=== PATIENT | male | born 1975 | race Caucasian/White ===

== ENCOUNTER 2017-03-15 10:06 | Emergency (ER) | payer OTHER ==
[~2017-03-15] VITALS: Ht 180.3 cm; Wt 83.9 kg
[~2017-03-15 10:06] MED LIST: AGM875T PO; NF-TRA/ACE PO; SULF1TAB38 PO; TRAM-21 PO
--- OUTSIDE RECORDS SUMMARY | 2017-03-15 10:15 | XMS REPORT | Continuity of Care Document ---
Author Author [facility] Address Unknown Phone Unavailable Allergies Active Description Code Type Severity Reaction Onset Reported/Identified Relationship to Patient Clinical Status Yes codeine Drug Allergy N/A N/A 07/25/2009 Yes hydrocodone Drug Allergy N/A N/A 07/25/2009 Medications Problems Date Dx Coded Attending Type Code Diagnosis Diagnosed By 07/25/2009 386.2 VERTIGO OF CENTRAL ORIGIN 07/25/2009 784.0 HEADACHE 07/25/2009 HEATHER GALARZA APRN 386.2 VERTIGO OF CENTRAL ORIGIN 07/25/2009 HEATHER GALARZA APRN 784.0 HEADACHE 01/23/2012 726.32 LATERAL EPICONDYLITIS [place] 01/23/2012 HEATHER GALARZA APRN 726.32 LATERAL EPICONDYLITIS [place] 10/10/2012 305.1 NICOTINE DEPENDENCE 10/10/2012 401.1 ESSENTIAL HYPERTENSION BENIGN 10/10/2012 465.9 UPPER RESPIRATORY INFECTION 10/10/2012 HEATHER GALARZA APRN 305.1 NICOTINE DEPENDENCE 10/10/2012 HEATHER GALARZA APRN 401.1 ESSENTIAL HYPERTENSION BENIGN 10/10/2012 HEATHER GALARZA APRN 465.9 UPPER RESPIRATORY INFECTION 10/12/2012 HEATHER GALARZA APRN 382.9 OTITIS MEDIA 09/06/2013 HEATHER GALARZA APRN 346.90 HEADACHE, MIGRAINE Procedures Code Description [place] [id number] STREP A (IN-HOUSE) 10/10/2012 Results Encounters ACCT No. Visit Date/Time Discharge Status Pt. Type Provider Facility Loc./Unit Complaint [id number] 09/06/2013 17:08:00 09/06/2013 23: 59:59 CLS Outpatient HEATHER GALARZA APRN [id number] 10/10/2012 15:47:00 Document Registration
[2017-03-15] MEDS ORDERED: NITROGLYCERIN 0.4 MG SL TABS BTL 25'S SL ONE (10:24)
[2017-03-15] MEDS ORDERED: RX-NITROGLYCERIN 0.4 MG TAB BTL 25'S SL PRN (10:30)
[2017-03-15] MEDS ORDERED: ASPIRIN 81 MG CHEW (CHILDREN'S ASA) PO ONE (10:30)
--- NOTE | 2017-03-15 10:31 | ED Chest Pain ---
General Chief Complaint: Chest Pain Stated Complaint: CP,SHOULDER/BACK PAIN,SOB Nursing Triage Note: PT REPORTS INTERMITTENT CP. HE STATES HE HAD AND "EPISODE" WEDNESDAY THAT WAS ACCOMPANIED BY NAUSEA, DIZZINESS, DIAPHORESIS. Nursing Sepsis Screen: No Definite Risk Source: patient Exam Limitations: no limitations Allergies and Home Medications Allergies Coded Allergies: Codeine (Unverified Allergy, Mild, sick, 07/07/10) Hydrocodone (Unverified Allergy, Mild, sick, 07/07/10) Aspirin (Unverified Adverse Reaction, Mild, "told not to", 07/07/10) Home Medications Amoxicillin/Clavulanate K 1 Tab Tablet, 1 TAB PO BID for 7 Days, Ref 0 Prescribed by: MELECIO DHILLON on 12/20/10 3231 Past Utfpheb-Axnaar-Vitbrh Hx Patient Social History Alcohol Use: Rarely Uses Recreational Drug Use: No Smoking Status: Current Everyday Smoker Type Used: Cigarettes 2nd Hand Smoke Exposure: Yes Recent Foreign Travel: No Contact w/Someone Who Travel: No Recent Infectious Disease Expo: No Recent Hopitalizations: No Physical Abuse: No Sexual Abuse: No Seasonal Allergies Seasonal Allergies: No Surgeries History of Surgeries: Yes Surgeries: Orthopedic Respiratory History of Respiratory Disorde: No Cardiovascular History of Cardiac Disorders: Yes Cardiac Disorders: Hypertension Neurological History of Neurological Disord: Yes Neurological Disorders: Traumatic Brain Injury Genitourinary History of Genitourinary Disor: No Gastrointestinal History of Gastrointestinal Di: No Musculoskeletal History of Musculoskeletal Dis: No Endocrine History of Endocrine Disorders: No HEENT History of HEENT Disorders: No Cancer History of Cancer: No Psychosocial History of Psychiatric Problem: No Suicide Risk Score: 0 Integumentary History of Skin or Integumenta: No Physical Exam Vital Signs Vital Sign - Last 12Hours Capillary Refill : Less Than 3 Seconds Progress/Results/Core Measures Results/Orders Lab Results Laboratory Tests Test 03/15/17 10:20 Range/Units White Blood Count 8.9 4.3-11.0 10^3/uL Red Blood Count 4.97 4.35-5.85 10^6/uL Hemoglobin 15.8 13.3-17.7 G/DL Hematocrit 46 40-54 % Mean Corpuscular Volume 93 80-99 FL Mean Corpuscular Hemoglobin 32 25-34 PG Mean Corpuscular Hemoglobin Concent 34 32-36 G/DL Red Cell Distribution Width 12.8 10.0-14.5 % Platelet Count 147 130-400 10^3/uL Mean Platelet Volume 11.3 H 7.4-10.4 FL Neutrophils (%) (Auto) 64 42-75 % Lymphocytes (%) (Auto) 24 12-44 % Monocytes (%) (Auto) 7 0-12 % Eosinophils (%) (Auto) 4 0-10 % Basophils (%) (Auto) 0 0-10 % Neutrophils # (Auto) 5.7 1.8-7.8 X 10^3 Lymphocytes # (Auto) 2.1 1.0-4.0 X 10^3 Monocytes # (Auto) 0.7 0.0-1.0 X 10^3 Eosinophils # (Auto) 0.4 H 0.0-0.3 10^3/uL Basophils # (Auto) 0.0 0.0-0.1 10^3/uL Prothrombin Time 14.1 12.2-14.7 SEC INR Comment 1.1 0.8-1.4 Activated Partial Thromboplast Time 27 24-35 SEC D-Dimer < 0.27 0.00-0.49 UG/ML Sodium Level 137 135-145 MMOL/L Potassium Level 3.9 3.6-5.0 MMOL/L Chloride Level 103 98-107 MMOL/L Carbon Dioxide Level 28 21-32 MMOL/L Anion Gap 6 5-14 MMOL/L Blood Urea Nitrogen 13 7-18 MG/DL Creatinine 1.15 0.60-1.30 MG/DL Estimat Glomerular Filtration Rate > 60 BUN/Creatinine Ratio 11 Glucose Level 105 70-105 MG/DL Calcium Level 9.6 8.5-10.1 MG/DL Magnesium Level 2.1 1.8-2.4 MG/DL Total Bilirubin 0.5 0.1-1.0 MG/DL Aspartate Amino Transf (AST/SGOT) 28 5-34 U/L Alanine Aminotransferase (ALT/SGPT) 32 0-55 U/L Alkaline Phosphatase 58 40-136 U/L Myoglobin 92.7 H 10.0-92.0 NG/ML Troponin I < 0.30 <0.30 NG/ML Total Protein 7.5 6.4-8.2 GM/DL Albumin 4.4 3.2-4.5 GM/DL My Orders Orders - GURPREET MÁRQUEZ MD Cbc With Automated Diff (03/15/17 10:28) Magnesium (03/15/17 10:28) Chest 1 View, Ap/Pa Only (03/15/17 10:28) Ekg Tracing (03/15/17 10:28) Cardiac Profile 1 (03/15/17 10:28) Comprehensive Metabolic Panel (03/15/17 10:28) Myoglobin Serum (03/15/17 10:28) Protime With Inr (03/15/17 10:28) Partial Thromboplastin Time (03/15/17 10:28) O2 (03/15/17 10:28) Monitor-Rhythm Ecg Trace Only (03/15/17 10:28) Lipid Panel (03/16/17 06:00) Aspirin Chewable Tablet (Baby Aspirin Ch (03/15/17 10:30) Rx-Nitroglycerin Sl Tabs (Rx-Nitrostat S (03/15/17 10:30) Saline Lock/Iv-Start (03/15/17 10:28) Nitroglycerin 0.4 Mg Btl 25's (Nitrostat (03/15/17 10:24) Fibrin Degradation Products (03/15/17 11:45) Medications Given in ED Current Medications Medications Dose Ordered Sig/Dragan Route Start Time Stop Time Status Last Admin Dose Admin Aspirin 324 mg ONCE ONCE PO 03/15/17 10:30 03/15/17 10:31 DC 03/15/17 10:30 324 MG Nitroglycerin 0.4 mg STK-MED ONCE SL 03/15/17 10:24 03/15/17 10:33 DC 03/15/17 10:30 0.4 MG Vital Signs/I&O Vital Sign - Last 12Hours 03/15/17 03/15/17 10:15 10:15 Temp 96.9 Pulse 74 Resp 12 B/P (MAP) 172/100 Pulse Ox 96 O2 Delivery Room Air Room Air Blood Pressure Mean: 124 Progress Note #1: Time: 11:59 Progress Note Nitroglycerin had no effect on patient's pain. Workup was unremarkable. Case was reviewed with Dr. Pozo. Based on the patient's smoking history and family history of early cardiovascular events, further workup is felt prudent. Dr. Pozo requests a d-dimer be performed before completing the ER workup. Dr. Pozo's PA has been to the emergency room to evaluate the patient. Progress Note #2: Time: 12:44 Progress Note D-dimer was negative. Patient was seen in the emergency room by Dr. Pozo. He was taken directly to exercise stress test for further evaluation. ECG Initial ECG Impression Date: Mar 15, 2017 Initial ECG Impression Time: 10:11 Initial ECG Rate: 58 Initial ECG Rhythm: Normal Sinus Initial ECG Intervals: Normal Initial ECG Impression: Normal Comment Normal sinus rhythm with no ST elevation or depression. No abnormal intervals or axis deviation. Diagnostic Imaging Diagonstic Imaging: Xray Plain Films/CT/US/NM/MRI: chest Comments Chest x-ray viewed by me and report reviewed. See report below: NAME: CATHY CARDOZA [facility] REC#: [id number] PT STATUS: REG ER : 1975 PHYSICIAN: GURPREET MÁRQUEZ MD ADMIT DATE: 03/15/17/ER Signed Date of Exam: 03/15/17 CHEST 1 VIEW, AP/PA ONLY EXAMINATION: Portable upright radiograph of the chest. INDICATION: Dizziness. Chest pain. FINDINGS: There is suggestion of a prominent pericardial fat-pad in the medial aspect of the right lung base. The lungs otherwise are clear. The heart size is at the upper limits of normal. No effusion or pneumothorax. IMPRESSION: The mediastinum and eloina appear unremarkable. No acute process. Dictated by: Dictated on workstation # [id number] Dict: 03/15/17 1045 Trans: 03/15/17 1113 Interpreted by: ULI ALICEA MD Electronically signed by: ULI ALICEA MD 03/15/17 1113 Departure Impression Impression: Primary Impression: Chest pain Qualified Codes: R07.9 - Chest pain, unspecified Additional Impression: Essential hypertension Disposition: 01 HOME, SELF-CARE Condition: Improved Departure-Patient Inst. Decision time for Depature: 13:10 Referrals: CHANDANA VASQUEZ MD (PCP/Family) Primary Care Physician Patient Instructions: Chest Pain (DC) Add. Discharge Instructions: Follow-up with Dr. Vasquez as soon as possible. Take aspirin EC 81 mg daily for general cardiac prevention. Work toward quitting smoking. Seek assistance from Dr. Vasquez if needed. Return to the emergency room if symptoms worsen again. Eat a low salt diet and begin exercising to help control your blood pressure. All discharge instructions reviewed with patient and/or family. Voiced understanding. GURPREET MÁRQUEZ MD Mar 15, 2017 10:31
[2017-03-15 10:34] LABS: BASOPHILS % (AUTO) 0 % (0-10); EOSINOPHILS # (AUTO) 0.4 10^3/uL (0.0-0.3); EOSINOPHILS % (AUTO) 4 % (0-10); LYMPHOCYTES # (AUTO) 2.1 X 10^3 (1.0-4.0); LYMPHOCYTES % (AUTO) 24 % (12-44); MEAN CORPUSCULAR HEMOGLOBIN 32 PG (25-34); MEAN CORPUSCULAR HGB CONC 34 G/DL (32-36); MEAN CORPUSCULAR VOLUME 93 FL (80-99); MEAN PLATELET VOLUME 11.3 FL (7.4-10.4); MONOCYTES # (AUTO) 0.7 X 10^3 (0.0-1.0); MONOCYTES % (AUTO) 7 % (0-12); NEUTROPHILS # (AUTO) 5.7 X 10^3 (1.8-7.8); NEUTROPHILS % (AUTO) 64 % (42-75); PLATELET COUNT 147 10^3/uL (130-400); RED BLOOD COUNT 4.97 10^6/uL (4.35-5.85); RED CELL DISTRIBUTION WIDTH 12.8 % (10.0-14.5); WHITE BLOOD COUNT 8.9 10^3/uL (4.3-11.0)
[2017-03-15 10:38] LABS: INR 1.1 (0.8-1.4); PROTHROMBIN TIME PATIENT 14.1 SEC (12.2-14.7)
[2017-03-15 10:45] LABS: ALANINE AMINOTRANSFERASE 32 U/L (0-55); ALBUMIN 4.4 GM/DL (3.2-4.5); ANION GAP 6 MMOL/L (5-14); ASPARTATE AMINO TRANSFERASE 28 U/L (5-34); BILIRUBIN,TOTAL 0.5 MG/DL (0.1-1.0); BLOOD UREA NITROGEN 13 MG/DL (7-18); BUN/CREATININE RATIO 11; CALCIUM 9.6 MG/DL (8.5-10.1); CARBON DIOXIDE 28 MMOL/L (21-32); CHLORIDE 103 MMOL/L (98-107); CREATININE SERUM 1.15 MG/DL (0.60-1.30); GFR ESTIMATED > 60; GLUCOSE 105 MG/DL (70-105); MAGNESIUM 2.1 MG/DL (1.8-2.4); POTASSIUM 3.9 MMOL/L (3.6-5.0); SODIUM 137 MMOL/L (135-145); TOTAL PROTEIN 7.5 GM/DL (6.4-8.2)
[2017-03-15 10:52] LABS: MYOGLOBIN SERUM 92.7 NG/ML (10.0-92.0)
--- NOTE | 2017-03-15 10:56 | Diagnostic Imaging Report ---
EXAMINATION: Portable upright radiograph of the chest. INDICATION: Dizziness. Chest pain. FINDINGS: There is suggestion of a prominent pericardial fat-pad in the medial aspect of the right lung base. The lungs otherwise are clear. The heart size is at the upper limits of normal. No effusion or pneumothorax. IMPRESSION: The mediastinum and eloina appear unremarkable. No acute process. Dictated by: Dictated on workstation # [id number]
--- NOTE | 2017-03-15 12:10 | Consultation-Cardiology ---
HPI-Cardiology Cardiology Consultation Date of Consultation 03/15/17 Date of Admission Time Seen by Provider: 12:09 Indication: Chest pain HPI Patient is a 41 y/o male with history of HTN, tobaccoism. Reports he was fishing on Wednesday when he had an episode of chest pain with associated nausea , dyspnea, and diaphoresis. Episode lasted approx 15 minutes, then resolved on its own. Denies any active CP at this time. Reports intermitted episodes of CP over the past several months, though previous episodes only lasted seconds. Reports family history coronary artery disease. Patient is a 41 years old gentleman with history of hypertension and tobaccoism , had an episode of chest pain with shortness of breath and nausea lasted for 15 minutes and resolve spontaneously. The next day felt slightly tired. This morning came to the emergency room for evaluation out of concern about that episode. On my evaluation was feeling better. We discussed the management plan I recommended evaluating a stress test area Home Medications & Allergies Allergies: Coded Allergies: Codeine (Unverified Allergy, Mild, sick, 07/07/10) Hydrocodone (Unverified Allergy, Mild, sick, 07/07/10) Aspirin (Unverified Adverse Reaction, Mild, "told not to", 07/07/10) Home Medication List Reviewed: Yes DWM-Jlcbkf-Hseaqo Hx Patient Social History Alcohol Use: Rarely Uses Recreational Drug Use: No Smoking Status: Current Everyday Smoker Type Used: Cigarettes 2nd Hand Smoke Exposure: Yes Recent Foreign Travel: No Recent Infectious Disease Expo: No Recent Hopitalizations: No Past Medical History HTN, Tobaccoism Constitutional: No chills, No diaphoresis, No dizziness, No fever EENTM: No blurred vision, No double vision Respiratory: No cough, No short of breath Cardiovascular: chest pain, No palpitations, No syncope Gastrointestinal: No abdominal pain, No constipation Genitourinary: No frequency, No hematuria Musculoskeletal: No back pain Skin: No lesions, No rash Psychiatric/Neurological: Denies Anxiety Reviewed Test Results Reviewed Test Results Lab Laboratory Tests 03/15/17 10:20: White Blood Count 8.9, Red Blood Count 4.97, Hemoglobin 15.8, Hematocrit 46, Mean Corpuscular Volume 93, Mean Corpuscular Hemoglobin 32, Mean Corpuscular Hemoglobin Concent 34, Red Cell Distribution Width 12.8, Platelet Count 147, Mean Platelet Volume 11.3H, Neutrophils (%) (Auto) 64, Lymphocytes (%) (Auto) 24 , Monocytes (%) (Auto) 7, Eosinophils (%) (Auto) 4, Basophils (%) (Auto) 0, Neutrophils # (Auto) 5.7, Lymphocytes # (Auto) 2.1, Monocytes # (Auto) 0.7, Eosinophils # (Auto) 0.4H, Basophils # (Auto) 0.0, Prothrombin Time 14.1, INR Comment 1.1, Activated Partial Thromboplast Time 27, D-Dimer < 0.27, Sodium Level 137, Potassium Level 3.9, Chloride Level 103, Carbon Dioxide Level 28, Anion Gap 6, Blood Urea Nitrogen 13, Creatinine 1.15, Estimat Glomerular Filtration Rate > 60, BUN/Creatinine Ratio 11, Glucose Level 105, Calcium Level 9.6, Magnesium Level 2.1, Total Bilirubin 0.5, Aspartate Amino Transf (AST/SGOT ) 28, Alanine Aminotransferase (ALT/SGPT) 32, Alkaline Phosphatase 58, Myoglobin 92.7H, Troponin I < 0.30, Total Protein 7.5, Albumin 4.4 ECG Impression ECG Initial ECG Rhythm: Normal Sinus Physical Exam Vital Signs Vital Sign - Last 12Hours Capillary Refill : Less Than 3 Seconds General Appearance: No Apparent Distress, WD/WN HEENT: PERRL/EOMI, TMs Normal Neck: Non Tender, Supple Respiratory: Lungs Clear, No Respiratory Distress Cardiovascular: Regular Rate, Rhythm, No Edema, No Gallop Gastrointestinal: Non Tender, Soft Rectal: Deferred Back: No CVA Tenderness Extremity: Non Tender, No Calf Tenderness, No Pedal Edema Neurologic/Psychiatric: Alert, Oriented x3, 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 No acute EKG changes, cardiac enzymes negative. Further evaluation with EKG stress test (2) Dyspnea Qualifiers: Qualified Codes: R06.02 - Shortness of breath Status: Acute Permanent Comment: continue to monitor. Last Edited By: Leanne Hairston on Mar 15, 2017 12:49 (3) Hypertension Qualifiers: Qualified Codes: I10 - Essential (primary) hypertension Status: Chronic Permanent Comment: maintained on Lisinopril. Continue to monitor BP. Last Edited By: Leanne Hairston on Mar 15, 2017 12:49 (4) Tobacco abuse Status: Chronic Permanent Comment: educated on the importance of smoking cessation. Last Edited By: Leanne Hairston on Mar 15, 2017 12:49 Assessment/Plan CP, nonspecific etiology-EKG revealed sinus rhythm, cardiac enzymes negative. Planning to further evaluate with EKG stress test. Dyspnea-resolved. Continue to monitor Hypertension-maintained on lisinopril. Continue to monitor blood pressure/ heart rate Tobaccoism-educated on importance of smoking cessation Thank you for allowing us to dyspnea management of Mr. Keller. This is Leanne Hairston PA-C as a scribe for Dr. Pozo. Patient was seen and evaluated with Lenane, I agree with the current scribe. He denied any further episode of chest pain since 2 days ago, cardiac enzymes and EKG were normal. On examination lungs were clear to auscultation, heart is regular rate and rhythm. I decided to proceed with exercise stress test, he was able to exercise well on treadmill with nondiagnostic EKG changes, hypertensive response to exercise. I reassured him, patient is okay for discharge and will arrange for follow-up as an outpatient, his dyspnea is better. Educated on smoking cessation. I reviewed the note, interviewed the patient and examined the patient with Leanne, agree with the current scribe and used some modification to the note using Italic Font Clinical Quality Measures AMI/AHF: ASA po Prior to arrival: No LEANNE HERNÁNDEZ Mar 15, 2017 12:10 FRANCINE POZO MD Mar 15, 2017 15:15
[2017-03-15 13:17] VITALS: BP 158/96
== END 2017-03-15 13:17 | disposition home or self-care (01) ==
LOC: EDUNIT# 10:06 → ER 10:11
DX: R07.89 Other chest pain (principal); I10 Essential (primary) hypertension; F17.210 Nicotine dependence, cigarettes, uncomplicated; Z87.820 Personal history of traumatic brain injury
CPT/HCPCS: 36415; 71010; 80053; 83735; 83874; 84484; 85025; 85379; 85610; 85730; 93005; 93017; 93041

== ENCOUNTER 2021-03-15 21:32 | Emergency (ER) | payer BC ==
[~2021-03-15] VITALS: Ht 177.8 cm; Wt 80.0 kg
[2021-03-15 21:59] LABS: BASOPHILS # (AUTO) 0.1 10^3/uL (0.0-0.1); BASOPHILS % (AUTO) 1 % (0-10); EOSINOPHILS # (AUTO) 0.2 10^3/uL (0.0-0.3); EOSINOPHILS % (AUTO) 2 % (0-10); HEMATOCRIT 48 % (40-54); HEMOGLOBIN 16.6 g/dL (13.3-17.7); LYMPHOCYTES # (AUTO) 2.5 10^3/uL (1.0-4.0); LYMPHOCYTES % (AUTO) 26 % (12-44); MEAN CORPUSCULAR HEMOGLOBIN 33 pg (25-34); MEAN CORPUSCULAR HGB CONC 35 g/dL (32-36); MEAN CORPUSCULAR VOLUME 95 fL (80-99); MEAN PLATELET VOLUME 10.9 fL (9.0-12.2); MONOCYTES # (AUTO) 0.8 10^3/uL (0.0-1.0); MONOCYTES % (AUTO) 8 % (0-12); NEUTROPHILS # (AUTO) 6.1 10^3/uL (1.8-7.8); NEUTROPHILS % (AUTO) 64 % (42-75); PLATELET COUNT 174 10^3/uL (130-400); WHITE BLOOD COUNT 9.6 10^3/uL (4.3-11.0)
[2021-03-15 22:00] VITALS: BP 139/78
[2021-03-15] MEDS ORDERED: NS IV 1000 ML 1,000 ML IV SCH (22:00)
[2021-03-15 22:01] VITALS: BP 144/90
[2021-03-15 22:03] VITALS: BP 128/87
--- NOTE | 2021-03-15 22:07 | ED Syncope ---
General Chief Complaint: Dizziness/Syncope Stated Complaint: DIZZINESS/SYNCOPE/LETHARGIC Source of Information: Patient, Spouse Exam Limitations: No Limitations History of Present Illness Date Seen by Provider: Mar 15, 2021 Time Seen by Provider: 21:35 Initial Comments Patient to ER by private conveyance from home with chief complaint that he was speaking to his girlfriend's father in the driveway and had 2 beers and had a near syncopal episode. He did not fall or strike his head. 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 He is not having any pain in his head or neck now. He has a history of hypertension but does not take any medicines or follow-up with Dr. De Luna for the past couple years. He says he does not usually drink alcohol. Smokes about 2 packs of cigarettes per day. 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 He does not have a history of syncopal episodes. No palpitations chest pain shortness of air cough fevers chills nausea vomiting diarrhea or loss of control of bowel or bladder. No history of seizures. Patient was seen in the hospital 2017 for some chest pain by Dr. Pozo and had uneventful observation and a treadmill stress test. Allergies and Home Medications Allergies Coded Allergies: Codeine (Unverified Allergy, Mild, sick, 07/07/10) Hydrocodone (Unverified Allergy, Mild, sick, 07/07/10) Aspirin (Unverified Adverse Reaction, Mild, "told not to", 07/07/10) Patient Home Medication List Home Medication List Reviewed: Yes Amoxicillin/Clavulanate K (Augmentin 875-125 Tablet) 1 Tab Tablet, 1 TAB PO BID Prescribed by: MELECIO DHILLON on 12/20/10 5079 Review of Systems Constitutional: No chills, No diaphoresis EENTM: No ear discharge, No ear pain Respiratory: No cough, No short of breath Cardiovascular: No edema, No Hx of Intervention, No palpitations; syncope; No vascular heart diseas Gastrointestinal: No abdominal pain, No constipation, No diarrhea, No jaundice Genitourinary: No decreased output, No discharge Musculoskeletal: No back pain, No joint pain All Other Systems Reviewed Negative Unless Noted: Yes Past Dbjqfxp-Kmejru-Rwedes Hx Patient Social History Tobacco Use?: Yes Tobacco type used: Cigarettes Smoking Status: Current Everyday Smoker Smokeless Tobacco Frequency: Heavy User (2+ pack per day) Use of E-Cig and/or Vaping dev: No Substance use?: No Alcohol Use?: Yes Alcohol type: Beer Alcohol Frequency: Rarely Seasonal Allergies Seasonal Allergies: No Past Medical History Surgeries: Yes Orthopedic Respiratory: No Cardiac: Yes Hypertension Neurological: Yes Traumatic Brain Injury Genitourinary: No Gastrointestinal: No Musculoskeletal: No Endocrine: No HEENT: No Cancer: No Psychosocial: No Integumentary: No Physical Exam Vital Signs Vital Signs - First Documented 03/15/21 03/15/21 22:00 22:05 Temp 36.5 Pulse 79 Resp 20 B/P (MAP) 139/78 (98) Pulse Ox 99 O2 Delivery Room Air Capillary Refill : Height, Weight, BMI Height: 5'11" Weight: 185lbs. oz. 83.481703dd; BMI Method:Stated General Appearance: No Apparent Distress, WD/WN HEENT: PERRL/EOMI; No Moist Mucous Membranes (Dry oral mucosa); TM Abnormal (R) (Mild injection without loss of TM anatomy, clear fluid effusion) Neck: Full Range of Motion, Normal Inspection, Non Tender, Supple Cardiovascular: Regular Rate, Rhythm, No Edema, Normal Peripheral Pulses Respiratory: Chest Non Tender, Lungs Clear, Normal Breath Sounds, No Accessory Muscle Use, No Respiratory Distress Gastrointestinal: Normal Bowel Sounds, Non Tender, Soft Extremities: Normal Capillary Refill, Normal Inspection, No Pedal Edema Neurologic/Psychiatric: Alert, Oriented x3, No Motor/Sensory Deficits Cranial Nerves: Normal Hearing, Normal Speech, PERRL Coordination/Gait: Normal Gait Motor/Sensory: No Motor Deficit, No Sensory Deficit Skin: Normal Color, Warm/Dry Progress/Results/Core Measures Results/Orders Lab Results Laboratory Tests Test 03/15/21 21:48 Range/Units White Blood Count 9.6 4.3-11.0 10^3/uL Red Blood Count 5.00 4.30-5.52 10^6/uL Hemoglobin 16.6 13.3-17.7 g/dL Hematocrit 48 40-54 % Mean Corpuscular Volume 95 80-99 fL Mean Corpuscular Hemoglobin 33 25-34 pg Mean Corpuscular Hemoglobin Concent 35 32-36 g/dL Red Cell Distribution Width 12.6 10.0-14.5 % Platelet Count 174 130-400 10^3/uL Mean Platelet Volume 10.9 9.0-12.2 fL Immature Granulocyte % (Auto) 0 % Neutrophils (%) (Auto) 64 42-75 % Lymphocytes (%) (Auto) 26 12-44 % Monocytes (%) (Auto) 8 0-12 % Eosinophils (%) (Auto) 2 0-10 % Basophils (%) (Auto) 1 0-10 % Neutrophils # (Auto) 6.1 1.8-7.8 10^3/uL Lymphocytes # (Auto) 2.5 1.0-4.0 10^3/uL Monocytes # (Auto) 0.8 0.0-1.0 10^3/uL Eosinophils # (Auto) 0.2 0.0-0.3 10^3/uL Basophils # (Auto) 0.1 0.0-0.1 10^3/uL Immature Granulocyte # (Auto) 0.0 0.0-0.1 10^3/uL Sodium Level 138 135-145 MMOL/L Potassium Level 4.1 3.6-5.0 MMOL/L Chloride Level 103 98-107 MMOL/L Carbon Dioxide Level 20 L 21-32 MMOL/L Anion Gap 15 H 5-14 MMOL/L Blood Urea Nitrogen 15 7-18 MG/DL Creatinine 1.56 H 0.60-1.30 MG/DL Estimat Glomerular Filtration Rate 48 BUN/Creatinine Ratio 10 Glucose Level 92 70-105 MG/DL Calcium Level 9.6 8.5-10.1 MG/DL Corrected Calcium 9.4 8.5-10.1 MG/DL Total Bilirubin 0.6 0.1-1.0 MG/DL Aspartate Amino Transf (AST/SGOT) 30 5-34 U/L Alanine Aminotransferase (ALT/SGPT) 33 0-55 U/L Alkaline Phosphatase 66 40-136 U/L Troponin I < 0.028 <0.028 NG/ML C-Reactive Protein High Sensitivity 0.80 H 0.00-0.50 MG/DL B-Type Natriuretic Peptide < 10.0 <100.0 PG/ML Total Protein 7.4 6.4-8.2 GM/DL Albumin 4.2 3.2-4.5 GM/DL My Orders Orders - DAVIS,DIEGO J Ekg Tracing (03/15/21 21:35) Continuous Ekg Monitoring (03/15/21 21:35) Orthostatic Vital Signs (Adult (03/15/21 21:51) Cbc With Automated Diff (03/15/21 21:51) Comprehensive Metabolic Panel (03/15/21 21:51) Hs C Reactive Protein (03/15/21 21:51) Troponin I (03/15/21 21:51) Chest 1 View, Ap/Pa Only (03/15/21 21:51) BNP (03/15/21 21:51) Ed Iv/Invasive Line Start (03/15/21 21:51) Ns Iv 1000 Ml (Sodium Chloride 0.9%) (03/15/21 22:00) Vital Signs/I&O 03/15/21 03/15/21 03/15/21 03/15/21 22:00 22:01 22:03 22:05 Temp 36.5 Pulse 79 81 81 80 Resp 20 B/P (MAP) 139/78 (98) 144/90 (108) 146/80 (102) 128/87 (101) Pulse Ox 99 O2 Delivery Room Air Blood Pressure Mean: 98 Progress Progress Note #1: Time: 22:04 Progress Note Patient presents for near syncopal episode. He does appear to be clinically very dry and dehydrated. We'll give him a liter of fluids do some orthostatic vital signs and complete EKG and some labs. He is not having any discomfort. No headache or neurologic symptoms. We did talk about doing a CT scan with his distant history of TBI's and declined doing it at this time. We'll get him some follow-up with cardiology if we do not find anything immediately life- threatening today. Progress Note #2: Time: 22:46 Progress Note Colombian syncope score: 0 points. Colombian Syncope Risk Score Low risk. 1.9% risk of 30-day serious adverse event. He seen Dr. Pozo in the past so he can follow-up with him outpatient in the next 2 to 4 weeks Initial ECG Impression Date: Mar 15, 2021 Initial ECG Impression Time: 21:41 Initial ECG Rate: 77 Initial ECG Rhythm: Normal Sinus Initial ECG Intervals: Normal Initial ECG Impression: Normal Comment Normal sinus rhythm without clinically relevant ST elevation or depression. Diagnostic Imaging Diagonstic Imaging: Xray Plain Films/CT/US/NM/MRI: chest Comments [facility]. [place], [place] NAME: CATHY CARDOZA [facility] REC#: [id number] PT STATUS: REG ER : 1975 PHYSICIAN: DIEGO CANNON MD ADMIT DATE: 03/15/21/ER Draft Date of Exam:03/15/21 CHEST 1 VIEW, AP/PA ONLY EXAMINATION: Chest radiograph, portable AP view. DATE: 03/15/2021 10:30 PM INDICATION: 45-year-old male, syncope. COMPARISON: March 15, 2017. FINDINGS: Heart size and mediastinal contours are unchanged. There is no identified pneumothorax. There is no large pleural effusion. There is no identified focal airspace consolidation. IMPRESSION: No identified acute cardiopulmonary abnormality. Dictated on workstation # [id number] Dict: 03/15/212229 Trans: 03/15/212238 [facility] [id number] Interpreted by: SLOAN AMARAL MD Electronically signed by: Reviewed: Reviewed by Me Departure Impression Primary Impression: Near syncope Additional Impression: Dehydration determined by examination Disposition: HOME, SELF-CARE Condition: Stable Departure-Patient Inst. Decision time for Depature: 22:46 Referrals: FRANCINE POZO MD ,LOCAL PHYSICIAN (PCP) Primary Care Physician Patient Instructions: Near Fainting (DC) Add. Discharge Instructions: I suspect your dehydration contributed to your near syncope but I would recommend a little more careful work-up in the clinic with a mgmt specialist. Call Dr. Pozo Wednesday morning and request follow-up in the next 2 to 4 weeks. Return to the ER promptly if you experience chest pain, shortness of air or continued passing out episodes. Drink plenty of fluids to catch up over the next 1 to 2 weeks. All discharge instructions reviewed with patient and/or family. Voiced understanding. Copy Copies To 1: FRANCINE POZO MD, TITUS J Mar 15, 2021 22:07
[2021-03-15 22:10] LABS: ALBUMIN 4.2 GM/DL (3.2-4.5); CHLORIDE 103 MMOL/L (98-107); POTASSIUM 4.1 MMOL/L (3.6-5.0); SODIUM 138 MMOL/L (135-145)
[2021-03-15 22:11] LABS: CALCIUM 9.6 MG/DL (8.5-10.1)
[2021-03-15 22:12] LABS: GLUCOSE 92 MG/DL (70-105)
[2021-03-15 22:13] LABS: TOTAL PROTEIN 7.4 GM/DL (6.4-8.2)
[2021-03-15 22:14] LABS: BILIRUBIN,TOTAL 0.6 MG/DL (0.1-1.0); CARBON DIOXIDE 20 MMOL/L (21-32)
[2021-03-15 22:16] LABS: ALKALINE PHOSPHATASE 66 U/L (40-136); CREATININE SERUM 1.56 MG/DL (0.60-1.30); GFR ESTIMATED 48
[2021-03-15 22:17] LABS: BUN/CREATININE RATIO 10
[2021-03-15 22:19] LABS: ALANINE AMINOTRANSFERASE 33 U/L (0-55)
--- NOTE | 2021-03-15 22:41 | Diagnostic Imaging Report ---
EXAMINATION: Chest radiograph, portable AP view. DATE: 03/15/2021 10:30 PM INDICATION: 45-year-old male, syncope. COMPARISON: March 15, 2017. FINDINGS: Heart size and mediastinal contours are unchanged. There is no identified pneumothorax. There is no large pleural effusion. There is no identified focal airspace consolidation. IMPRESSION: No identified acute cardiopulmonary abnormality. Dictated by: Dictated on workstation # [id number]
[2021-03-15 22:58] VITALS: BP 141/78
== END 2021-03-15 22:54 | disposition home or self-care (01) ==
LOC: EDUNIT# 21:32 → ER 21:34
DX: R55 Syncope and collapse (principal); E86.0 Dehydration; I10 Essential (primary) hypertension; F17.210 Nicotine dependence, cigarettes, uncomplicated; Z87.820 Personal history of traumatic brain injury
CPT/HCPCS: 36415; 71045; 80053; 83880; 84484; 85025; 86141; 93005